=== PATIENT | male | born 1965 | race Caucasian/White ===

== ENCOUNTER 2018-01-03 09:24 | Day surgery (SDC) | payer BC ==
[2018-01-03] MEDS ORDERED: PROPOFOL 20 ML (10:52)
[2018-01-03] MEDS ORDERED: PROPOFOL 0 ML (10:52)
[2018-01-03 10:54] LABS: ADD MAN DIFF? NO
[2018-01-03] MEDS ORDERED: LIDOCAINE 100 MG SYRINGE (10:55)
[2018-01-03] MEDS ORDERED: PHENYLephrine (100 MCG/ML) 5ML SYG (10:56)
[2018-01-03 10:59] LABS: BASOPHILS % 0.7 % (0.0-2.0); EOSINOPHILS # 0.2 10^3/ul (0.0-0.5); EOSINOPHILS % 3.5 % (0.0-7.0); HEMATOCRIT 39.3 % (42.0-52.0); HEMOGLOBIN 13.6 g/dl (14.0-18.0); LYMPHOCYTES # 2.5 10^3/ul (0.8-2.9); LYMPHOCYTES % 41.9 % (15.0-51.0); MEAN CORPUSCULAR HEMOGLOBIN 32.3 pg (29.0-33.0); MEAN CORPUSCULAR HGB CONC 34.6 g/dl (32.0-37.0); MEAN CORPUSCULAR VOLUME 93.3 fl (82.0-101.0); MEAN PLATELET VOLUME 10.3 fl (7.4-10.4); MONOCYTE # 0.4 10^3/ul (0.3-0.9); MONOCYTES % 6.5 % (0.0-11.0); NEUTROPHIL # 2.8 10^3/ul (1.6-7.5); NEUTROPHILS % 47.2 % (39.0-77.0); PLATELET COUNT 236 10^3/UL (140-415); RED BLOOD COUNT 4.21 10^6/ul (4.70-6.10); RED CELL DISTRIBUTION WIDTH 12.6 % (11.5-14.5)
[2018-01-03] MEDS ORDERED: VASOPRESSIN 20 UNITS INJ (11:15)
[2018-01-03 11:18] LABS: INR 0.98; PROTIME 13.1 Sec (11.9-14.9)
[2018-01-03 11:19] LABS: PARTIAL THROMBOPLASTIN TIME 29.6 Sec (23.0-35.0)
[2018-01-03 11:29] LABS: BLOOD UREA NITROGEN 18 mg/dl (7-20); CALCIUM 9.7 mg/dl (8.4-10.2); CARBON DIOXIDE 30 mmol/L (21-31); CHLORIDE 105 mmol/L (97-110); CREATININE 0.94 mg/dl (0.61-1.24); GLUCOSE 99 mg/dl (70-220); POTASSIUM 4.7 mmol/L (3.5-5.1); SODIUM 141 mmol/L (135-144)
[2018-01-03] MEDS ORDERED: hydrALAzine 20 MG INJ IV (12:00)
[2018-01-03] MEDS ORDERED: LABETALOL HCL 20MG INJ IV (12:00)
[2018-01-03] MEDS ORDERED: FENTAnyl 50 MCG/ML VIAL IV (12:00)
[2018-01-04 09:02] LABS: ANION GAP 6 (8-16)
== END 2018-01-03 14:30 | disposition home or self-care (01) ==
LOC: SDS 09:24
DX: I48.91 Unspecified atrial fibrillation (principal); I10 Essential (primary) hypertension; I42.9 Cardiomyopathy, unspecified; I34.0 Nonrheumatic mitral (valve) insufficiency
CPT/HCPCS: 71045; 80048; 85025; 85610; 85730; 92960; 93005; 93312; 93320

== ENCOUNTER 2018-03-27 11:13 | Day surgery (SDC) | payer BC ==
[~2018-03-27 11:13] MED LIST: DIAZEPAM 5 MG TAB PO; DIPHENHYDRAMINE 25 MG CAP PO; FAMOTIDINE 20 MG TAB PO; SOD CHLORIDE 0.45% 1,000 ML IV
[2018-03-27 12:05] LABS: ADD MAN DIFF? NO
[2018-03-27 12:09] LABS: BASOPHIL # 0.1 10^3/ul (0.0-0.1); BASOPHILS % 0.6 % (0.0-2.0); EOSINOPHILS # 0.3 10^3/ul (0.0-0.5); EOSINOPHILS % 3.1 % (0.0-7.0); HEMOGLOBIN 12.5 g/dl (14.0-18.0); LYMPHOCYTES # 2.3 10^3/ul (0.8-2.9); LYMPHOCYTES % 28.5 % (15.0-51.0); MEAN CORPUSCULAR HGB CONC 33.8 g/dl (32.0-37.0); MEAN CORPUSCULAR VOLUME 94.6 fl (82.0-101.0); MEAN PLATELET VOLUME 9.8 fl (7.4-10.4); MONOCYTE # 0.5 10^3/ul (0.3-0.9); MONOCYTES % 6.3 % (0.0-11.0); NEUTROPHIL # 4.9 10^3/ul (1.6-7.5); NEUTROPHILS % 61.1 % (39.0-77.0); PLATELET COUNT 267 10^3/UL (140-415); RED BLOOD COUNT 3.91 10^6/ul (4.70-6.10)
[2018-03-27] MEDS ORDERED: IODIXANOL LOCM 100 ML BTL (12:20)
[2018-03-27] MEDS ORDERED: FENTAnyl 50 MCG/ML VIAL (12:20)
[2018-03-27] MEDS ORDERED: HEPARIN 1000 UNITS/ML 10 ML INJ (12:20)
[2018-03-27] MEDS ORDERED: LIDOCAINE 1% (MDV) 20 ML INJ (12:20)
[2018-03-27] MEDS ORDERED: MIDAZOLAM 1 MG/ML 2 ML INJ (12:20)
[2018-03-27] MEDS ORDERED: NITROGLYCERIN (IC) 100 MCG/ML INJ (12:21)
[2018-03-27] MEDS ORDERED: VERAPAMIL 5 MG INJ (12:21)
[2018-03-27 12:27] LABS: ANION GAP 7 (5-13); CALCIUM 9.5 mg/dl (8.4-10.2); CARBON DIOXIDE 27 mmol/L (21-31); CHLORIDE 104 mmol/L (97-110); CREATININE 0.96 mg/dl (0.61-1.24); Estimated GFR > 60 mL/min (>60); GLUCOSE 100 mg/dl (70-220); INR 0.92; PARTIAL THROMBOPLASTIN TIME 28.2 Sec (23.0-35.0); POTASSIUM 4.4 mmol/L (3.5-5.1); PROTIME 12.5 Sec (11.9-14.9); SODIUM 138 mmol/L (135-144); TRIGLYCERIDES 202 mg/dl (0-149)
[2018-03-27 12:29] LABS: BLOOD UREA NITROGEN 23 mg/dl (7-20)
[2018-03-27] MEDS ORDERED: SOD CHLORIDE 0.9% 1,000 ML IV (14:05)
[2018-03-27] MEDS ORDERED: ACETAMINOPHEN 325 MG TAB PO (14:30)
[2018-03-27] MEDS ORDERED: morphine 2 MG INJ IV (14:30)
[2018-03-27] MEDS ORDERED: AL HYDROX/MG HYDROX/SIMETH 30 ML CUP PO (14:30)
== END 2018-03-27 17:41 | disposition home or self-care (01) ==
LOC: CCL 11:13
DX: I25.10 Atherosclerotic heart disease of native coronary artery without angina pectoris (principal); I48.91 Unspecified atrial fibrillation; I10 Essential (primary) hypertension; E78.5 Hyperlipidemia, unspecified
CPT/HCPCS: 71045; 80048; 84478; 85025; 85610; 85730; 93005; 93458

== ENCOUNTER 2018-07-13 09:42 | Day surgery (SDC) | payer BC ==
[2018-07-13 10:38] LABS: ADD MAN DIFF? NO
[2018-07-13 10:41] LABS: WHITE BLOOD COUNT 8.3 10^3/ul (4.8-10.8)
[2018-07-13 10:41] LABS: BASOPHIL # 0.1 10^3/ul (0.0-0.1); BASOPHILS % 0.7 % (0.0-2.0); EOSINOPHILS # 0.2 10^3/ul (0.0-0.5); EOSINOPHILS % 2.5 % (0.0-7.0); HEMATOCRIT 36.8 % (42.0-52.0); HEMOGLOBIN 12.4 g/dl (14.0-18.0); LYMPHOCYTES # 2.6 10^3/ul (0.8-2.9); LYMPHOCYTES % 31.3 % (15.0-51.0); MEAN CORPUSCULAR HEMOGLOBIN 32.3 pg (29.0-33.0); MEAN CORPUSCULAR HGB CONC 33.7 g/dl (32.0-37.0); MEAN CORPUSCULAR VOLUME 95.8 fl (82.0-101.0); MEAN PLATELET VOLUME 10.2 fl (7.4-10.4); MONOCYTE # 0.5 10^3/ul (0.3-0.9); MONOCYTES % 6.4 % (0.0-11.0); NEUTROPHIL # 4.8 10^3/ul (1.6-7.5); NEUTROPHILS % 58.7 % (39.0-77.0); PLATELET COUNT 270 10^3/UL (140-415); RED BLOOD COUNT 3.84 10^6/ul (4.70-6.10); RED CELL DISTRIBUTION WIDTH 13.2 % (11.5-14.5)
[2018-07-13] MEDS ORDERED: LIDOCAINE 2% (SDV) 5 ML INJ (10:53)
[2018-07-13] MEDS ORDERED: MIDAZOLAM 1 MG/ML 2 ML INJ (10:53)
[2018-07-13] MEDS ORDERED: PROPOFOL 20 ML (10:54)
[2018-07-13 10:58] LABS: ANION GAP 9 (5-13); BLOOD UREA NITROGEN 20 mg/dl (7-20); CALCIUM 9.2 mg/dl (8.4-10.2); CARBON DIOXIDE 26 mmol/L (21-31); CHLORIDE 105 mmol/L (97-110); CREATININE 1.24 mg/dl (0.61-1.24); Estimated GFR > 60 mL/min (>60); GLUCOSE 96 mg/dl (70-220); POTASSIUM 4.5 mmol/L (3.5-5.1); SODIUM 140 mmol/L (135-144)
[2018-07-13] MEDS ORDERED: GLYCOPYRROLATE 0.4 MG INJ (11:05)
[2018-07-13] MEDS ORDERED: EPHEDrine SULFATE 50 MG/5 ML SYG (11:05)
[2018-07-13 11:11] LABS: INR 0.92; PROTIME 12.5 Sec (11.9-14.9)
[2018-07-13 11:12] LABS: PARTIAL THROMBOPLASTIN TIME 28.1 Sec (23.0-35.0)
[2018-07-13] MEDS ORDERED: PROCHLORPERAZINE 10 MG INJ IV (12:00)
[2018-07-13] MEDS ORDERED: MEPERIDINE 25 MG INJ IV (12:00)
[2018-07-13] MEDS ORDERED: FENTAnyl 50 MCG/ML VIAL IV (12:00)
[2018-07-13] MEDS ORDERED: ONDANSETRON 4 MG INJ IV (12:00)
[2018-07-13] MEDS ORDERED: DIPHENHYDRAMINE 50 MG INJ IV (12:00)
[2018-07-13] MEDS ORDERED: HYDROmorphONE 1 MG/5 ML IV SYRINGE IV ×2 (12:00)
== END 2018-07-13 13:44 | disposition home or self-care (01) ==
LOC: CCL 09:42 → SDS 09:42 → CCL 13:44
DX: I48.0 Paroxysmal atrial fibrillation (principal); I10 Essential (primary) hypertension; I42.9 Cardiomyopathy, unspecified
CPT/HCPCS: 80048; 85025; 85610; 85730; 92960; 93005; 93312; 93320

== ENCOUNTER 2018-11-13 18:53 | Emergency (ER) | payer BC ==
[2018-11-13 20:05] LABS: ADD MAN DIFF? NO
[2018-11-13 20:11] LABS: BASOPHIL # 0.1 10^3/ul (0.0-0.1); BASOPHILS % 0.8 % (0.0-2.0); EOSINOPHILS # 0.2 10^3/ul (0.0-0.5); EOSINOPHILS % 3.5 % (0.0-7.0); HEMATOCRIT 30.8 % (42.0-52.0); HEMOGLOBIN 10.2 g/dl (14.0-18.0); LYMPHOCYTES # 1.4 10^3/ul (0.8-2.9); LYMPHOCYTES % 23.5 % (15.0-51.0); MEAN CORPUSCULAR HGB CONC 33.1 g/dl (32.0-37.0); MEAN CORPUSCULAR VOLUME 99.7 fl (82.0-101.0); MEAN PLATELET VOLUME 10.1 fl (7.4-10.4); MONOCYTE # 0.4 10^3/ul (0.3-0.9); MONOCYTES % 7.3 % (0.0-11.0); NEUTROPHIL # 3.8 10^3/ul (1.6-7.5); NEUTROPHILS % 63.7 % (39.0-77.0); PLATELET COUNT 234 10^3/UL (140-415); RED BLOOD COUNT 3.09 10^6/ul (4.70-6.10); RED CELL DISTRIBUTION WIDTH 14.1 % (11.5-14.5)
[2018-11-13 20:31] LABS: ANION GAP 8 (5-13); BLOOD UREA NITROGEN 21 mg/dl (7-20); CALCIUM 9.4 mg/dl (8.4-10.2); CARBON DIOXIDE 27 mmol/L (21-31); CHLORIDE 100 mmol/L (97-110); CREATININE 1.66 mg/dl (0.61-1.24); Estimated GFR 44 mL/min (>60); GLUCOSE 84 mg/dl (70-220); POTASSIUM 5.2 mmol/L (3.5-5.1); SODIUM 135 mmol/L (135-144)
[2018-11-13 20:42] LABS: TROPONIN-I < 0.012 ng/ml (0.000-0.120)
== END 2018-11-13 22:45 | disposition home or self-care (01) ==
LOC: E/R 18:53
DX: R20.0 Anesthesia of skin (principal); R22.0 Localized swelling, mass and lump, head; R00.1 Bradycardia, unspecified; Z79.01 Long term (current) use of anticoagulants
CPT/HCPCS: 36415; 70450; 71045; 80048; 84484; 85025; 93005; 99285-25